=== PATIENT | female | born 1995 | race Caucasian/White ===

== ENCOUNTER → 2019-02-28 | Emergency (ER) | payer OTHER ==
[~2019-02-28] VITALS: Ht 154.9 cm; Wt 62.5 kg
[~2019-02-28] MED LIST: CRANBERRY200 MG PO; LEVAQUIN500 MG PO; MELOXICAM7.5 MG PO; NORCO 7.5-3251 EACH PO; PENICILLIN V P500 MG PO; PYRIDIUM200 MG PO; ULTRAM50 MG PO; ZOFRAN4 MG PO
== END ==
LOC: ED 02:36
DX: K52.9 Noninfective gastroenteritis and colitis, unspecified (principal)
CPT/HCPCS: 80053; 81001; 83690; 84703; 85025; 96361; 96374; 96375; 99284-25; J1170; J2405; J2765; J7030